=== PATIENT | male | born 1995 | race Caucasian/White ===

== ENCOUNTER 2018-11-24 08:03 | Emergency (ER) | payer SELFPAY ==
[~2018-11-24] VITALS: Ht 172.7 cm; Wt 62.3 kg
[2018-11-24 08:07] VITALS: BP 123/77; PULSE 87; RESP 16; Ht 172.7 cm; Wt 62.3 kg
[2018-11-24] MEDS ORDERED: CEFTRIAXONE 250 MG INJ IM STA (08:48)
[2018-11-24] MEDS ORDERED: AZITHROMYCIN 250 MG TAB PO STA (08:48)
--- NOTE | 2018-11-24 09:25 | ERD ---
ER Documentation Chief Complaint Chief Complaint DYSURIA AND DISCHARGE X 1 DAY HPI 23-year-old gentleman who presents to the emergency room describing greenish penile discharge for approximately 24 hours status post high risk sexual behavior. He describes a history of STDs. He denies any fevers or chills or rash. No testicular pain. Symptoms are moderate. ROS All systems reviewed and are negative except as per history of present illness. Allergies Allergies: Coded Allergies: No Known Allergy (Unverified , 11/24/18) FmHx Family History: No diabetes Physical Exam Vitals Vital Signs Date Temp Pulse Resp B/P (MAP) Pulse Ox O2 O2 Flow FiO2 Time Delivery Rate 11/24/18 97.3 87 16 123/77 99 08:07 (92) Physical Exam General: Well developed, well nourished, no acute distress Head: Normocephalic, atraumatic. Eyes: EOM intact ENT: Moist mucous membranes Neck: Full ROM Respiratory: No respiratory distress Cardiovascular: Well perfused distally Abdominal: Nondistended : Deferred per patient request MSK: No edema, no unilateral swelling, 5/5 strength Neurologic: Alert and oriented, moving all extremities, normal speech, steady gait Skin: No rash Psych: Normal mood Results 24 hrs Current Medications Medications Dose Sig/Faith Start Time Status Last (Trade) Ordered Route PRN Stop Time Admin Dose Reason Admin 1,000 mg ONCE STAT 11/24/18 DC 11/24/18 Azithromycin PO 08:48 11/24/18 08:59 (Zithromax) 08:50 Ceftriaxone 250 mg ONCE STAT 11/24/18 DC 11/24/18 Sodium IM 08:48 11/24/18 08:59 (Rocephin) 08:50 Lidocaine 5 ml ONCE ONCE 11/24/18 11/24/18 (Xylocaine INJ 09:30 11/24/18 09:08 1% (Mpf)) 09:31 Procedures/MDM History and description are very consistent with likely gonococcal versus chlamydial urethritis. Empiric therapy would be appropriate. Urine PCR would also be appropriate. Patient is otherwise well-appearing without systemic signs or symptoms. Outpatient follow-up for further HIV testing and STD testing was advised. Treatment of sexual partners was also advised. The patient does not have an identifiable emergent medical condition that warrants inpatient hospitalization at this time. The patient is deemed safe for discharge with outpatient follow-up. We discussed follow up with the patient's primary care doctor within 24 to 48 hours as needed. We also discussed return to the emergency room for worsening symptoms or worsening condition. Outpatient referral: None required Discharge Medications: None required Departure Diagnosis: Primary Impression: Urethritis Condition: Good Patient Instructions: Std, Suspected (Culture Only) Referrals: [facility] YOU HAVE RECEIVED A MEDICAL SCREENING EXAM AND THE RESULTS INDICATE THAT YOU DO NOT HAVE A CONDITION THAT REQUIRES URGENT TREATMENT IN THE EMERGENCY DEPARTMENT. FURTHER EVALUATION AND TREATMENT OF YOUR CONDITION CAN WAIT UNTIL YOU ARE SEEN IN YOUR DOCTORS OFFICE WITHIN THE NEXT 1-2 DAYS. IT IS YOUR RESPONSIBILITY TO MAKE AN APPOINTMENT FOR FOLOW-UP CARE. IF YOU HAVE A PRIMARY DOCTOR --you should call your primary doctor and schedule an appointment IF YOU DO NOT HAVE A PRIMARY DOCTOR YOU CAN CALL OUR PHYSICIAN REFERRAL HOTLINE AT IF YOU CAN NOT AFFORD TO SEE A PHYSICIAN YOU CAN CHOSE FROM THE FOLLOWING [facility] [address] [facility]. [facility] [address] [facility]. [facility] [address] [facility] [address] [facility] [facility] [address] [facility]. [facility] [address] [facility]. [facility] YOU HAVE RECEIVED A MEDICAL SCREENING EXAM AND THE RESULTS INDICATE THAT YOU DO NOT HAVE A CONDITION THAT REQUIRES URGENT TREATMENT IN THE EMERGENCY DEPARTMENT. FURTHER EVALUATION AND TREATMENT OF YOUR CONDITION CAN WAIT UNTIL YOU ARE SEEN IN YOUR DOCTORS OFFICE WITHIN THE NEXT 1-2 DAYS. IT IS YOUR RESPONSIBILITY TO MAKE AN APPOINTMENT FOR FOLOW-UP CARE. IF YOU HAVE A PRIMARY DOCTOR --you should call your primary doctor and schedule and appointment IF YOU DO NOT HAVE A PRIMARY DOCTOR YOU CAN CALL OUR PHYSICIAN REFERRAL HOTLINE AT . IF YOU CAN NOT AFFORD TO SEE A PHYSICIAN YOU CAN CHOSE FROM THE FOLLOWING [facility] INSTITUTIONS: [facility] [address] [place] [address] [facility] [address] [place] [address] [facility] + [facility] [address] [place] [address] Additional Instructions: Call your primary care doctor TOMORROW for an appointment during the next 1 WEEK.Tell the certified legal secretary specialist that you were referred from this facility.See the doctor sooner or return here if your condition worsens before your appointment time. MARCELLA TORRES MD Nov 24, 2018 09:25
[2018-11-24] MEDS ORDERED: LIDOCAINE 1% (MPF) 5 ML VIAL INJ ONE (09:30)
== END 2018-11-24 09:44 | disposition home or self-care (01) ==
LOC: FTE 08:03
DX: N34.2 Other urethritis (principal)
CPT/HCPCS: 87591; 96372; 99284; J0696

== ENCOUNTER 2019-01-27 18:49 | Emergency (ER) | payer SELFPAY ==
[~2019-01-27] VITALS: Ht 170.2 cm; Wt 57.0 kg
[2019-01-27 18:54] VITALS: BP 147/88; PULSE 73; RESP 16; Ht 170.2 cm; Wt 57.0 kg
[2019-01-27] MEDS ORDERED: LIDOCAINE 1% (MPF) 5 ML VIAL INJ ONE (20:00)
[2019-01-27] MEDS ORDERED: AZITHROMYCIN 500 MG TAB PO ONE (20:00)
[2019-01-27] MEDS ORDERED: CEFTRIAXONE 250 MG INJ IM ONE (20:00)
--- NOTE | 2019-01-27 21:09 | ERD ---
ER Documentation Chief Complaint Chief Complaint PT reports painful urination today and wants STD check HPI 23-year-old male presents with complaint of painful urination and penile discharge for the past 3 days. States that he has been having unprotected sex and thinks that his partner might also have a STD. Patient denies fevers, chills, hematuria, flank pain, nausea, vomiting, diarrhea. ROS All systems reviewed and are negative except as per history of present illness. Allergies Allergies: Coded Allergies: No Known Allergy (Unverified , 11/24/18) PMhx/Soc Medical and Surgical Hx: pt denies Medical Hx, pt denies Surgical Hx Hx Alcohol Use: No Hx Substance Use: No Hx Tobacco Use: No Smoking Status: Never smoker FmHx Family History: No diabetes, No coronary disease, No other Physical Exam Vitals Vital Signs Date Temp Pulse Resp B/P (MAP) Pulse Ox O2 O2 Flow FiO2 Time Delivery Rate 01/27/19 97.9 73 16 147/88 100 18:54 (107) Physical Exam Const: No acute distress Head: Atraumatic Eyes: Normal Conjunctiva ENT: Normal External Ears, Nose and Mouth. Neck: Full range of motion. No meningismus. Resp: Clear to auscultation bilaterally Cardio: Regular rate and rhythm, no murmurs Abd: Soft, non tender, non distended. Normal bowel sounds Skin: No petechiae or rashes Back: No midline or flank tenderness Ext: No cyanosis, or edema Neur: Awake and alert Psych: Normal Mood and Affect Exam: Scrotum: Normal Hernia: None Testes/Epid: Non-tender w/ normal lie Cremaster: Reflex intact Lymph: No inguinal lymphadenopathy Discharge: White Results 24 hrs Laboratory Tests Test 01/27/19 19:48 Urine Color YELLOW Urine Clarity TURBID Urine pH 7.0 Urine Specific [place] 1.019 Urine Ketones NEGATIVE mg/dL Urine Nitrite NEGATIVE mg/dL Urine Bilirubin NEGATIVE mg/dL Urine Urobilinogen NEGATIVE mg/dL Urine Leukocyte Esterase TRACE Pilo/ul Urine Microscopic RBC 1 /HPF Urine Microscopic WBC 11 /HPF Urine Amorphous Crystals FEW /HPF Urine Bacteria FEW /HPF Urine Hemoglobin NEGATIVE mg/dL Urine Glucose NEGATIVE mg/dL Urine Total Protein NEGATIVE mg/dl Current Medications Medications Dose Sig/Faith Start Time Status Last (Trade) Ordered Route PRN Stop Time Admin Dose Reason Admin 1,000 mg ONCE ONCE 01/27/19 DC 01/27/19 Azithromycin PO 20:00 01/27/19 19:55 (Zithromax) 20:01 Ceftriaxone 250 mg ONCE ONCE 01/27/19 DC 01/27/19 Sodium IM 20:00 01/27/19 19:55 (Rocephin) 20:01 Lidocaine 5 ml ONCE ONCE 01/27/19 DC 01/27/19 (Xylocaine INJ 20:00 01/27/19 19:55 1% (Mpf)) 20:01 Procedures/MDM MDM: White discharge was noted on exam. There is no evidence of phimosis or paraphimosis. This clinically correlates with patient's concern for dysuria and unprotected intercourse. Patient was treated prophylactically for STD with ceftriaxone and azithromycin in the ER. Patient given strict precautions not to have intercourse until symptoms resolve. Urine sent out for culture. Patient advised to have his partner get tested and treated as well. I have low suspicion for pyelonephritis, nephrolithiasis, appendicitis, epididymitis, urethritis, orchitis, balanitis, prostatitis, phimosis, priapism, penile contusion, incarcerated hernia or strangulated hernia, or any emergent condition. At this time, patient is stable for discharge and outpatient management. I have instructed the patient to follow-up with his/her primary care physician in 1 day. I have discussed with the patient the possibility of needing to see a specialist for further workup and imaging studies if symptoms persist. I have instructed the patient to promptly return to the ER for any new or worsening symptoms including but not limited to increased pain, fever, nausea, vomiting, weakness or LOC. The patient and/or family expressed understanding of and agreement with this plan. All questions were answered. Home care instructions were provided. DISCLAIMER: Inadvertent spelling and grammatical errors are likely due to EHR/dictation software use and do not reflect on the overall quality of patient care. Also, please note that the electronic time recorded on this note does not necessarily reflect the actual time of the patient encounter. Departure Diagnosis: Primary Impression: High risk sexual behavior Additional Impressions: Encounter for assessment of STD exposure Penile discharge Dysuria Condition: Stable Patient Instructions: Dysuria, Understanding STDs, If You Think You Have an STD, Std, Suspected (Culture Only) Referrals: [facility] YOU HAVE RECEIVED A MEDICAL SCREENING EXAM AND THE RESULTS INDICATE THAT YOU DO NOT HAVE A CONDITION THAT REQUIRES URGENT TREATMENT IN THE EMERGENCY DEPARTMENT. FURTHER EVALUATION AND TREATMENT OF YOUR CONDITION CAN WAIT UNTIL YOU ARE SEEN IN YOUR DOCTORS OFFICE WITHIN THE NEXT 1-2 DAYS. IT IS YOUR RESPONSIBILITY TO MAKE AN APPOINTMENT FOR FOLOW-UP CARE. IF YOU HAVE A PRIMARY DOCTOR --you should call your primary doctor and schedule an appointment IF YOU DO NOT HAVE A PRIMARY DOCTOR YOU CAN CALL OUR PHYSICIAN REFERRAL HOTLINE AT IF YOU CAN NOT AFFORD TO SEE A PHYSICIAN YOU CAN CHOSE FROM THE FOLLOWING [facility] [address] [facility] [facility]. [facility] [address] [facility] [address] [facility] [facility] [address] [facility]. [facility] [address] [facility]. [facility] [address] Additional Instructions: FOLLOW UP WITH YOUR PRIMARY CARE PHYSICIAN TOMORROW.Return to this facility if you are not improving as expected. GILMER MORALES Jan 27, 2019 21:09
== END 2019-01-27 21:10 | disposition home or self-care (01) ==
LOC: FTE 18:49
DX: R36.9 Urethral discharge, unspecified (principal); R30.0 Dysuria; Z20.2 Contact with and (suspected) exposure to infections with a predominantly sexual mode of transmission; Z72.51 High risk heterosexual behavior
CPT/HCPCS: 81001; 87591; 96372; 99284; J0696